=== PATIENT | female | born 1945 | race Two or more races ===

== ENCOUNTER 2021-09-28 23:17 | Emergency (ER) | payer OTHER ==
[~2021-09-28] VITALS: Ht 157.5 cm; Wt 61.0 kg
[2021-09-29] MEDS ORDERED: AmLODIPine BESYLATE 5 MG TABLET PO ONE (00:30)
[2021-09-29 01:18] VITALS: BP 153/54
== END 2021-09-29 02:13 | disposition home or self-care (01) ==
LOC: EMS 23:19
DX: F41.9 Anxiety disorder, unspecified (principal); I10 Essential (primary) hypertension; H92.02 Otalgia, left ear
CPT/HCPCS: 99283